=== PATIENT | female | born 1970 | race Caucasian/White ===

== ENCOUNTER 2021-01-22 09:00 | Day surgery (SDC) | payer BC ==
[2012-03-25 14:02] VITALS: BP 134/73
[2021-01-22] MEDS ORDERED: Depo-Medrol 40 MG/ML IM ONE (09:01)
[2021-01-22] MEDS ORDERED: BUPIVACAINE 0.5% VIAL IJ ONE (09:01)
[2021-01-22] MEDS ORDERED: DIPRIVAN 200 MG/20 ML IV ONE (10:57)
--- NOTE | 2021-01-22 12:40 | XRAY ---
Indication: Bilateral SI joint injection Intraoperative fluoroscopy provided for 14 seconds. 4 digital spot image submitted for interpretation demonstrates posterior needle tip projecting over the inferior left and right SI joints. Correlate with intraoperative findings/report. Incidental numerous bilateral pelvic surgical clips.
--- NOTE | 2021-01-22 12:52 | XRAY ---
14 seconds fluoroscopy time in surgery for bilateral SI joint injections.
[2021-01-22] MEDS ORDERED: Lactated Ringers 1,000 ML IV ONE (15:53)
== END 2021-01-22 11:40 | disposition home or self-care (01) ==
LOC: SDC-PAIN 09:00
PROVIDERS: ATTEND Psychiatry & Neurology Pain Medicine
DX: M46.1 Sacroiliitis, not elsewhere classified (principal); E10.9 Type 1 diabetes mellitus without complications; Z79.899 Other long term (current) drug therapy
CPT/HCPCS: 27096; 72202; 77002; 82947; J1030; J2704; G0260

== ENCOUNTER 2021-07-23 08:15 | Day surgery (SDC) | payer BC ==
[2012-03-25 14:02] VITALS: BP 134/73
[2021-07-23 10:15] LABS: Specific Gravity 1.023 (1.005-1.025)
[2021-07-23 11:07] LABS: Amphetamine,Urine NEGATIVE (NEGATIVE); Barbiturate,Urine NEGATIVE (NEGATIVE); Benzodiazepine,Urine NEGATIVE (NEGATIVE); CREATININE,URINE RANDOM 81.6 MG/DL; Cocaine,Urine NEGATIVE (NEGATIVE); Methadone,Urine NEGATIVE (NEGATIVE); Opiate,Urine NEGATIVE (NEGATIVE); PCP,Urine NEGATIVE (NEGATIVE); THC,Urine NEGATIVE (NEGATIVE)
== END 2021-07-23 09:04 | disposition home or self-care (01) ==
LOC: SDC-PAIN 08:15
PROVIDERS: ATTEND Psychiatry & Neurology Pain Medicine
DX: Z53.9 Procedure and treatment not carried out, unspecified reason (principal); R73.9 Hyperglycemia, unspecified
CPT/HCPCS: 80307; 81002; 82570; 82947; 83986